=== PATIENT | male | born 1950 | race Caucasian/White ===

== ENCOUNTER → 2019-07-03 | Outpatient (CLI) | payer MEDICARE ==
[2019-07-03 08:28] LABS: HEMATOCRIT 44.1 % (42.0-52.0); HEMOGLOBIN 14.7 g/dl (13.5-17.5); MEAN CORPUSCULAR HEMOGLOBIN 31.6 pg (27.0-33.0); MEAN CORPUSCULAR HGB CONC 33.3 g/dl (32.0-36.5); MEAN CORPUSCULAR VOLUME 94.8 fl (80.0-96.0); PLATELET COUNT, AUTOMATED 217 10^3/uL (150-450); RED BLOOD COUNT 4.65 10^6/uL (4.30-6.10); WHITE BLOOD COUNT 3.7 10^3/uL (4.0-10.0)
[2019-07-03 08:50] LABS: HEMOGLOBIN A1c 5.3 %
[2019-07-03 09:12] LABS: ALT/SGPT 20 U/L (12-78); BILIRUBIN,TOTAL 0.8 MG/DL (0.2-1.0); BLOOD UREA NITROGEN 13 MG/DL (7-18); CALCIUM LEVEL 9.4 MG/DL (8.8-10.2); CARBON DIOXIDE LEVEL 29 MEQ/L (21-32); CHLORIDE LEVEL 104 MEQ/L (98-107); CHOLESTEROL LEVEL 185 MG/DL (<200); CHOLESTEROL RISK RATIO 2.681 (<5); CREATININE FOR GFR 0.97 MG/DL (0.70-1.30); GLOMERULAR FILTRATION RATE > 60.0 (>42); GLUCOSE, FASTING 88 MG/DL (70-100); HDL CHOLESTEROL 69 MG/DL (>40); LDL CHOLESTEROL 105 MG/DL (<100); NON-HDL-C 116 MG/DL; POTASSIUM SERUM 4.5 MEQ/L (3.5-5.1); SODIUM LEVEL 140 MEQ/L (136-145); TOTAL PROTEIN 6.6 GM/DL (6.4-8.2); TRIGLYCERIDES LEVEL 53 MG/DL (<150)
== END ==
LOC: M LAB 07:50
PROVIDERS: ATTEND Family Medicine
DX: I10 Essential (primary) hypertension (principal); N40.0 Benign prostatic hyperplasia without lower urinary tract symptoms; R53.83 Other fatigue

== ENCOUNTER → 2019-07-19 | Outpatient (REF) | payer MEDICARE ==
[2019-07-19 14:09] LABS: AMORPHOUS SEDIMENT MODERATE (NEGATIVE); APPEARANCE, URINE HAZY (CLEAR); BACTERIA, URINE AUTO NEGATIVE (NEGATIVE); BILIRUBIN, URINE AUTO NEGATIVE (NEGATIVE); BLOOD, URINE BLOOD NEGATIVE (NEGATIVE); COLOR, URINE YELLOW (YELLOW); GLUCOSE, URINE (UA) AUTO NEGATIVE (NEGATIVE); KETONE, URINE AUTO NEGATIVE (NEGATIVE); LEUKOCYTE ESTERASE, URINE AUTO NEGATIVE (NEGATIVE); NITRITE, URINE AUTO NEGATIVE (NEGATIVE); PROTEIN, URINE AUTO NEGATIVE (NEGATIVE); RBC, URINE AUTO 0 /HPF (0-3); SPECIFIC GRAVITY URINE AUTO 1.013 (1.002-1.035); SQUAMOUS EPITHELIAL CELL UR AU 0 /HPF (0-6); UROBILINOGEN, URINE AUTO 0.2 mg/dL (0.0-2.0); WBC, URINE AUTO 2 /HPF (0-3)
== END ==
LOC: M SMT 13:08
PROVIDERS: ATTEND Urology
DX: R97.20 Elevated prostate specific antigen [PSA] (principal)

== ENCOUNTER → 2019-07-24 | Outpatient (CLI) | payer MEDICARE ==
[~2019-07-24] MED LIST: AMLO-183 PO; FLOM0.4C39 PO; RA C1OIL PO
--- NOTE | 2019-07-24 16:32 | REP ---
Prostate sonography: History: Elevated PSA. Sonographic findings: Trans rectal prostate sonography demonstrates unremarkable seminal vesicles. Prostate gland is heterogeneously enlarged with calcifications and cystic changes noted. Glandular dimensions are measured at 4.7 x 5.2 x 3.6 cm with a calculated glandular volume of 45.7 ml. Transrectal sonographic guidance is provided to Dr. Pagan who performed trans rectal ultrasound guided needle biopsy procedure . Electronically Signed by Jake Dietrich MD 07/24/2019 04:24 P
== END ==
LOC: M SMT PRO 08:43
PROVIDERS: ATTEND Urology
DX: R97.20 Elevated prostate specific antigen [PSA] (principal)
CPT/HCPCS: 55700; 76872; 76942; G0416

== ENCOUNTER → 2019-08-01 | Outpatient (CLI) | payer MEDICARE ==
[~2019-08-01] MED LIST changes: -AMLO-183 PO; -FLOM0.4C39 PO; +ISOVUE-370 76% 100ML VIAL (Q9967) As Ordered ONE; -RA C1OIL PO
--- NOTE | 2019-08-02 12:21 | REP ---
CT abdomen and pelvis with IV but without oral contrast: History: Prostate CA. No comparison CT study. CT contrast dose is 100 mL of intravenous Isovue 370. CT findings: Preliminary digital associate accountant radiograph demonstrates thoracolumbar scoliosis and bilateral hip arthroplasties. Bowel gas pattern is normal. The lung bases are clear. The liver and the spleen are normal in size. There are scattered granulomatous calcifications in the spleen and liver. No focal hepatic or splenic mass lesion is seen. No adrenal lesion is observed on either side. No abnormality is noted in the gallbladder or in the pancreas. The kidneys enhance symmetrically and are morphologically intact. No hydronephrosis or mass is observed. Normal caliber aorta is seen. No periaortic mass or adenopathy is seen. No pelvic mass or adenopathy is observed. There is considerable spray artifact however through the mid pelvis from the hip arthroplasty components. Left colonic diverticulosis is observed. Small and large intestinal bowel loops are unremarkable. Normal appendix is seen. No abdominal wall defect is seen. Bone window settings show no bony destructive lesion. Impression: [place] artifact through the pelvis from bilateral hip arthroplasties. Old granulomatous calcifications in the liver and spleen. Otherwise negative CT study abdomen and pelvis. Electronically Signed by Jake Dietrich MD 08/02/2019 06:24 P
== END ==
LOC: M RAD 17:12
PROVIDERS: ATTEND Urology
DX: C61 Malignant neoplasm of prostate (principal); D73.89 Other diseases of spleen; K76.89 Other specified diseases of liver; Z96.643 Presence of artificial hip joint, bilateral
CPT/HCPCS: 74177; Q9967

== ENCOUNTER → 2019-08-02 | Outpatient (CLI) | payer MEDICARE ==
--- NOTE | 2019-08-02 15:27 | REP ---
WHOLE BODY RADIONUCLIDE BONE SCAN: HISTORY: Prostate carcinoma. TECHNIQUE: 22.0 mCi technetium 99m MDP is injected and standard whole body bone scan imaging is acquired. SCINTIGRAPHIC FINDINGS: The patient is status post bilateral hip arthroplasties and photopenic areas associated with the arthroplasty components are seen. There is an arthritic pattern of increased uptake in the medial compartment of the left knee and there is osteoarthritic uptake in both acromioclavicular joints. There is a mild levoconvex lumbar scoliotic curve. Degenerative disc uptake is seen in the lumbar spine. Otherwise normal distribution of skeletal tracer with uptake in bilateral kidneys and in the urinary bladder. There is no evidence to suggest skeletal metastatic disease. IMPRESSION: No evidence to suggest skeletal metastasis. Electronically Signed by Jake Dietrich MD 08/02/2019 06:28 P
== END ==
LOC: M RAD 09:28
PROVIDERS: ATTEND Urology
DX: M41.26 Other idiopathic scoliosis, lumbar region (principal); C61 Malignant neoplasm of prostate; Z96.643 Presence of artificial hip joint, bilateral
CPT/HCPCS: 78306; A9503

== ENCOUNTER → 2019-08-21 | Outpatient (CLI) | payer MEDICARE ==
[~2019-08-21] MED LIST changes: +AMLO-183 PO; +FLOM0.4C39 PO; -ISOVUE-370 76% 100ML VIAL (Q9967) As Ordered ONE; +RA C1OIL PO
--- NOTE | 2019-08-21 13:46 | RADONC ---
RADIATION ONCOLOGY CONSULTATION NOTE DATE: 08/21/2019 CHART NUMBER: [id number] He has a diagnosis of adenocarcinoma, prostate Reston 9 (4+5) located in all [address] scan of the abdomen and pelvis was negative for metastatic disease as was the nuclear medicine bone scan. STAGE: Clinical T2c, N0, M0, group stage 2A. ICD-10 CODE: C41. ECOG PERFORMANCE STATUS: 0. HISTORY OF PRESENT ILLNESS: The patient is a 69-year-old man who presented to our clinic for evaluation of external beam radiotherapy. He apparently was seen for evaluation of a PSA which had risen to 10 approximately last year. However the patient declined any further testing or diagnostic/procedures at that time. When he repeated his PSA, it had markedly risen to 158 and a biopsy was performed. On further questioning, it was actually 3 years ago when his PSA was approximately 10, was actually 10.4, and he waited until most recently for a repeat PSA, which was again, as stated, elevated to 158 necessitating his most recent biopsy. The biopsy revealed an adenocarcinoma located in all 12 specimens and was noted again in all 12 specimens to be a Reston's score of 9 (4+5). There were tumor cells noted throughout most of the entire cores with perineural invasion. The patient underwent a CT scan of the abdomen and pelvis and it did not show any evidence of lymphadenopathy. However, there was a significant amount of artifact secondary to his previous hip replacements. I reviewed the scans, I could not really define the extent of the prostate in those scans. The nuclear medicine scan, however was essentially negative for any gross evidence of metastatic deposits. He is here today for evaluation of local regional radiotherapy. PAST MEDICAL HEALTH: Hypertension. Bilateral left hip arthroplasty. Right lateral hip arthroplasty (2013, right). TRUS biopsy of the prostate 07/24/2019. FAMILY HISTORY OF CANCER: His father was at 82 from heart disease and mother lived to be 91 years with no identifiable major illnesses. He has two brothers and five sisters who are all healthy. SOCIAL HISTORY: The patient states that he has never smoked and his last screening was on 08/21/2019. ALCOHOL: He is a past drinker but currently does not. 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 MEDICATIONS: - Tylenol 650 mg q.8 h - amlodipine 5 mg 1 tablet orally once a day - Flomax 0.4 mg capsule 1 capsule orally once a day ALLERGIES: No known drug allergies. REVIEW OF SYSTEMS: RESPIRATORY: He denies coughing, dyspnea, hemoptysis, hiccups, pleuritic pain or wheezing. NEUROLOGIC: Denies disorientation, dizziness, gait disturbances, headaches, insomnia, memory loss, neuropathy, motor issues, paralysis, seizure disorders, sensory problems or stroke. NECK: Denies masses, muscle weakness, pain or difficulty with a ranges of motion or swelling. MUSCULOSKELETAL: Denies significant arthritis, bone pain, joint pain, muscle weakness or range of motion problems. HEMATOLOGIC: Denies easy bruising or lymphadenopathy. GENITOURINARY: He has minimal dysuria and frequency, especially when he is not on the Flomax, but denies hematuria, incontinence, nocturia, renal stone disease, retrograde ejaculation, scrotal swelling, urgency or urine changes, especially in color. GASTROINTESTINAL: Denies changes in bowel habits, constipation, diarrhea, heartburn, dyspepsia, hematochezia, hemorrhoids, melena, GI bleeding, nausea, pain, cramping, early satiety or vomiting. ENT: He denies ear pain, epistaxis, esophagitis, hearing difficulty, mouth dryness, oral bleeding, otitis, sinusitis, sputum production, stomatitis, alteration of taste or tinnitus. CONSTITUTIONAL: Denies decreased appetite, fatigue, fever, lethargy, malaise, night sweats, rigors, weight change. CARDIOVASCULAR: Denies arrhythmias chest pain, dyspnea, edema, orthopnea, palpitations. ALLERGIES: Denies allergies or adverse reactions. PHYSICAL EXAMINATION: VITALS: O2 saturation 98% on room air. Diastolic 83, systolic 153, respirations 19, pulse 66, temperature 97.4, weight 169.4, height is 74 inches. HEENT: Normocephalic. EOMs intact. PERRLA. Fundi benign. LYMPHATICS: No palpable peripheral lymphadenopathy is appreciated. LUNGS: Clear to auscultation and percussion. HEART: Regular without murmurs. ABDOMEN: Without evidence of hepatomegaly, masses, deep abdominal tenderness. EXTREMITIES: Without cyanosis, clubbing or edema. NEUROLOGIC: Examination grossly physiologic. SKIN: Normal with no significant solar degenerative changes. RECTAL EXAMINATION: Deferred at the patient's request. He has had a biopsy ultrasound all of which confirm an irregular prostate/multinodular with significant involvement with a high-grade adenocarcinoma. IMPRESSION: Poorly differentiated adenocarcinoma, prostate Reston's 9 (4+4) in all 12 specimens reported. PLAN OF RADIOTHERAPY: The patient is at high risk and he also has issues with appropriate imaging of his prostate gland for IMRT. In order to perform IMRT/IGRT, we need to be able to image the prostate adequately and with his bilateral hip replacements the artifacts are to significant to allow appropriate imaging. For this reason and because of the high-grade of the tumor, I would suggest that the patient start with approximately 3 months of androgen deprivation therapy. Perhaps during that period of time the prostate volume will decrease. At that point, a reimaging study can be obtained. Perhaps we can place the patient on our simulator where an image could be obtained to see if it would be adequate for a 3D conformal radiotherapy technique directed to the prostate and periprostatic lymph nodes. There would be further reductions after treatment of the pelvic lymph nodes to include the prostate up to a more significant higher dose. I have discussed these findings with Dr. Salas and Dr. Pagan and we will postpone the patient's CT scanner/simulation until approximately 3-1/2 months after which he will have been on his hormonal therapy (androgen deprivation therapy) for approximately 3 months. The indications, possible side effects, as well as alternatives to radiotherapy have been explained to Mr. And Mrs. Portillo. They understand and are willing to proceed as outlined. Thank you for allowing us the opportunity of participation in the joint management of this very fine gentleman. ANGELITA
== END ==
LOC: M ONCR 09:50
PROVIDERS: ATTEND Radiology Radiation Oncology
DX: C61 Malignant neoplasm of prostate (principal)

== ENCOUNTER → 2019-09-28 | Outpatient (CLI) | payer MEDICARE | LOC: M LAB 07:50 | PROVIDERS: ATTEND Urology | DX: C61 Malignant neoplasm of prostate (principal) ==

== ENCOUNTER → 2019-11-27 | Outpatient (CLI) | payer MEDICARE ==
[~2019-11-27] MED LIST changes: +ASPI81TA21 PO
--- NOTE | 2019-11-27 11:02 | RADONC ---
RADIATION ONCOLOGY RE-CONSULTATION NOTE DATE OF SERVICE: 11/27/2019 CHART NUMBER: [id number] DIAGNOSIS: Prostate CA. CLINICAL STAGE: [id number], PSA 158, and Jessee 9 (4+5). ICD-10 CODE: C41. ECOG PERFORMANCE STATUS: 0 HISTORY OF PRESENT ILLNESS: Mr. Portillo is a 69-year-old pleasant gentleman presented to our clinic for re-evaluation of external radiation therapy after 3 months of ADT. His history goes back to 2016. He had a routine PSA test which was reported to be 10.4. He did not have any urinary symptoms and there was no followup. Repeated the PSA on 06/23/2019 was reported to be 158. He underwent a prostatic biopsy on 07/24/2019 and it showed Gleason9 (4+5). There were tumor cells noted throughout most of the entire cores with perineural invasion. CT of the abdomen, pelvis, chest were negative for metastatic disease. Because of the bilateral hip replacements it was difficult to define extent of the prostate. So, he was recommended 3 months of ADT in which is completed and returned for re- evaluation. PAST MEDICAL HISTORY: As mentioned on the previous hypertension, bilateral hip replacement. arthroplasty. No significant other medical history. FAMILY HISTORY OF CANCER: Father , 82, from heart disease. Mother lived to be 91 years. SOCIAL HISTORY: He is a nonsmoker. Denies any alcohol abuse. 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 MEDICATIONS: - Tylenol p.r.n. - amlodipine 5 mg 1 tablet daily - Flomax 0.4 mg daily He has NO KNOWN ALLERGIES. REVIEW OF SYSTEMS: GENERAL: He denies any recent weight changes. Recently, he experienced occasional hot flashes lasting just a few minutes. CONSTITUTIONAL: Denies decreased appetite, fatigue, fever or recent weight changes. RESPIRATORY: Denies any coughing or wheezing. GASTROINTESTINAL: Denies diarrhea, constipation or abdominal pain. heart burn, rectal bleeding MUSCULOSKELETAL: Denies arthritis. No bone pain. No joint pain. He nightly no weakness or the muscles. UROLOGIC: He denies, dysuria or hematuria. mild urinary frequencies improved with flomax CARDIOVASCULAR: Denies chest pain or palpitation. GENITOURINARY: He denies urinary frequency, dysuria, nocturia, urgency. PHYSICAL EXAMINATION: GENERAL: He appeared to be in good general condition, not in apparent distress. He is alert and oriented. HEENT: Normocephalic. EOM intact. LYMPHATICS: There is no palpable lymphadenopathy in the neck. LUNGS: Are clear. HEART: Regular rhythm and rate. ABDOMEN: Is soft, nontender, nondistended. Without any palpable mass or organomegaly. EXTREMITIES: Without clubbing, swelling, cyanosis. NEUROLOGIC: Grossly intact. SKIN: There are no eczema or psoriasis. No lesions. DIGITAL RECTAL EXAMINATION: Revealed normal size prostate. There is nodularity ffelt on the left towards mid and apical portion. ASSESSMENT AND RECOMMENDATIONS: This 69-year-old gentleman has diagnosis of very high risk of prostate cancer. He was recommended ADT and external radiation therapy. There were problem defining prostate because of bilateral hip replacement. He returned after 3 months of ADT. We have reviewed NCCN guidelines and recommended the long-term ADT about 2-3 years with external radiation therapy. Because of the difficulties of defining prostate, I suggested fiducial marker placement as well as hydrogel spacer placement. The patient was accompanied by his . after reviewing NCCN guidelines and I explained procedure of radiation therapy and potential side effects senior care and short therm. I have given therm a chance to ask questions and concerns and they were answered to their satisfaction. They will discuss further with DR. Hinojosa and will get back to us. ANGELITA
== END ==
LOC: M ONCR 08:47
PROVIDERS: ATTEND Radiology Radiation Oncology
DX: C61 Malignant neoplasm of prostate (principal); Z92.3 Personal history of irradiation

== ENCOUNTER → 2019-12-22 | Outpatient (CLI) | payer MEDICARE | LOC: M LAB 08:50 | PROVIDERS: ATTEND Urology | DX: C61 Malignant neoplasm of prostate (principal) ==

== ENCOUNTER → 2020-01-01 | Outpatient (CLI) | payer MEDICARE ==
--- NOTE | 2020-01-01 14:25 | REPPI ---
Prostate sonography: History: Fiducial marker placement. Prior prostate biopsy. Sonographic findings: Transrectal sonographic guidance is provided to Dr. Pagan who performed trans rectal ultrasound guided fiducial marker placement. Electronically Signed by Jake Dietrich MD 01/01/2020 02:16 P
== END ==
LOC: M SMT PRO 10:40
PROVIDERS: ATTEND Urology
DX: C61 Malignant neoplasm of prostate (principal)

== ENCOUNTER → 2020-01-15 | Outpatient (RCR) | payer MEDICARE ==
--- NOTE | 2020-01-15 10:57 | RADONC ---
RADIATION ONCOLOGY SIMULATION NOTE: DATE: 01/15/2020 CHART NUMBER: [id number] Mr. Portillo was taken to the CT scan for CT simulation of his prostate field. CT was accomplished without difficulty or discomfort. Radiation treatment planning is underway and radiation treatments will begin subsequently. An immobilization device was created and will be used throughout the course of treatment. It was created without difficulty or discomfort. I was physically present throughout the course of CT simulation.
== END ==
LOC: M ONCR 10:29
PROVIDERS: ATTEND Radiology Radiation Oncology
DX: C61 Malignant neoplasm of prostate (principal)

== ENCOUNTER → 2020-02-14 | Outpatient (RCR) | payer MEDICARE ==
--- NOTE | 2020-01-28 08:58 | RADONC ---
RADIATION ONCOLOGY PROGRESS NOTE DATE: 01/28/2020 CHART NUMBER: [id number] PROGRESS NOTE: Mr. Portillo is presently at a dose of 540 cGy to his prostate and is tolerating treatments quite well at this point with no complaints related to his radiation therapy. He is having no urinary or bowel difficulties and no bone pain. REVIEW OF SYSTEMS: The patient's review of systems is noncontributory. Denies nausea, vomiting, fevers, chills, night sweats, diplopia, headaches, anxiety or depression, anorexia, weight loss, visual disturbances, chest pain, urinary or bowel difficulties, bone pain, or neurological problems. PHYSICAL EXAMINATION: The patient's skin is in good condition with no evidence of radiation change present. There is no moist or dry desquamation. The remainder of his physical exam remains unchanged. Mr. Portillo is tolerating treatments quite well and radiation will continue as scheduled.
--- NOTE | 2020-02-04 13:21 | RADONC ---
RADIATION ONCOLOGY PROGRESS NOTE DATE: 02/04/2020 CHART #: [id number] Mr. Portillo is presently at a dose of 1440 cGy to his prostate and seminal vesicles and is tolerating treatments quite well at this point with no complaints related to his radiation therapy. He is having no urinary or bowel difficulties and no bone pain. REVIEW OF SYSTEMS: The patient's review of systems is noncontributory. Denies nausea, vomiting, fevers, chills, night sweats, diplopia, headaches, anxiety or depression, anorexia, weight loss, visual disturbances, chest pain, urinary or bowel difficulties, bone pain, or neurological problems. PHYSICAL EXAMINATION: The patient's skin is in good condition with no evidence of moist or dry desquamation. The remainder of his physical exam remains unchanged. Mr. Portillo is tolerating treatments quite well and radiation will continue as scheduled.
--- NOTE | 2020-02-11 21:08 | RADONC ---
RADIATION ONCOLOGY PROGRESS NOTE DATE: 02/11/2020 CHART NUMBER: [id number] Mr. Portillo is presently at a dose of 2340 cGy to his prostate and seminal vesicles and is tolerating treatments quite well at this point with no difficulties related to his radiation therapy. He is having no urinary or bowel difficulties. No bone pain. REVIEW OF SYSTEMS: The patient's review of systems is noncontributory. He denies nausea, vomiting, fevers, chills, night sweats, diplopia, headaches, anxiety or depression, anorexia, weight loss, visual disturbances, chest pain, urinary or bowel difficulties, bone pain, or neurological problems. PHYSICAL EXAMINATION: The patient's skin is in excellent condition with no evidence of moist or dry desquamation. The remainder of his physical exam remains unchanged. Mr. Portillo is tolerating treatments quite well and radiation will continue as scheduled.
== END ==
LOC: M ONCR 01-21 11:57
PROVIDERS: ATTEND Radiology Radiation Oncology
DX: C61 Malignant neoplasm of prostate (principal)

== ENCOUNTER 2020-03-14 08:30 | Outpatient (RCR) | payer MEDICARE ==
--- NOTE | 2020-02-20 16:21 | RADONC ---
RADIATION ONCOLOGY PROGRESS NOTE DATE: 02/18/2020 CHART NUMBER: [id number] PROGRESS NOTE: Mr. Portillo is presently at a dose of 3240 cGy to his prostate and is tolerating treatments quite well at this point with no complaints related to his radiation therapy. He is having no urinary or bowel difficulties. No bone pain. REVIEW OF SYSTEMS: The patient's review of systems is noncontributory. Denies nausea, vomiting, fevers, chills, night sweats, diplopia, headaches, anxiety or depression, anorexia, weight loss, visual disturbances, chest pain, urinary or bowel difficulties, bone pain, or neurological problems. PHYSICAL EXAMINATION: The patient's skin is in good condition with no evidence of moist or dry desquamation. The remainder of his physical exam remains unchanged. Mr. Portillo is tolerating treatments quite well and radiation will continue as scheduled.
--- NOTE | 2020-02-26 11:05 | RADONC ---
RADIATION ONCOLOGY PROGRESS NOTE DATE OF SERVICE: 02/25/2020 CHART NUMBER: [id number]. PROGRESS NOTE: Mr. Portillo is presently at a dose of 4140 cGy to his prostate and seminal vesicles and is tolerating treatments quite well at this point with no significant difficulties related to his radiation therapy. He is having no urinary or bowel problems and no bone pain. REVIEW OF SYSTEMS: The patient's review of systems is noncontributory. He denies nausea, vomiting, fevers, chills, night sweats, diplopia, headaches, anxiety or depression, anorexia, weight loss, visual disturbances, chest pain, urinary or bowel difficulties, bone pain, or neurological problems. PHYSICAL EXAMINATION: The patient's skin is in good condition with no evidence of moist or dry desquamation. The remainder of his physical exam remains unchanged. Mr. Portillo is tolerating treatments quite well, and radiation will continue as scheduled.
--- NOTE | 2020-03-05 07:08 | RADONC ---
RADIATION ONCOLOGY PROGRESS NOTE DATE: 03/03/2020 CHART #: [id number] Mr. Portillo is presently at a dose of 4860 cGy to his prostate and seminal vesicles and is tolerating treatments quite well at this point with no complaints related to his radiation therapy. He is having no urinary or bowel difficulties and no bone pain. REVIEW OF SYSTEMS: The patient's review of systems is noncontributory. Denies nausea, vomiting, fevers, chills, night sweats, diplopia, headaches, anxiety or depression, anorexia, weight loss, visual disturbances, chest pain, urinary or bowel difficulties, bone pain, or neurological problems. PHYSICAL EXAMINATION: The patient's skin is in good condition with no evidence of moist or dry desquamation. The remainder of his physical exam remains unchanged. Mr. Portillo is tolerating treatments quite well and radiation will continue as scheduled.
--- NOTE | 2020-03-14 17:25 | RADONC ---
RADIATION ONCOLOGY PROGRESS NOTE DATE: 03/11/2020 CHART NUMBER: [id number] PROGRESS NOTE: Mr. Portillo is presently at a dose of 5040 cGy to his prostate and is tolerating treatment quite well at this point with no complaints related to his radiation therapy. He is having no significant urinary or bowel difficulties. No bone pain. REVIEW OF SYSTEMS: The patient's review of systems is noncontributory. Denies nausea, vomiting, fevers, chills, night sweats, diplopia, headaches, anxiety or depression, anorexia, weight loss, visual disturbances, chest pain, urinary or bowel difficulties, bone pain, or neurological problems. PHYSICAL EXAMINATION: The patient's skin is in good condition with no evidence of moist or dry desquamation. The remainder of his physical exam remains unchanged. The patient is tolerating treatment quite well and radiation will continue as scheduled.
== END 2020-03-16 ==
LOC: M ONCR 08:30
PROVIDERS: ATTEND Radiology Radiation Oncology
DX: C61 Malignant neoplasm of prostate (principal)

== ENCOUNTER 2020-03-26 08:30 | Outpatient (RCR) | payer MEDICARE ==
--- NOTE | 2020-03-23 09:19 | RADONC ---
RADIATION ONCOLOGY PROGRESS NOTE: DATE: 03/17/2020 CHART NUMBER: [id number] Mr. Portillo is presently at a dose of 6660 cGy to his prostate and is tolerating treatments quite well at this point with no complaints related to his radiation therapy. He is having no significant urinary or bowel difficulties and no bone pain. REVIEW OF SYSTEMS: The patient's review of systems is largely noncontributory. He denies nausea, vomiting, fevers, chills, night sweats, diplopia, headaches, anxiety or depression, anorexia, weight loss, visual disturbances, chest pain, urinary or bowel difficulties, bone pain, or neurological problems. PHYSICAL EXAMINATION: The patient's skin is in good condition with no evidence of moist or dry desquamation. The remainder of his physical exam remains unchanged. Mr. Portillo was tolerating treatments quite well and radiation will continue as scheduled.
--- NOTE | 2020-03-27 21:17 | RADONC ---
RADIATION ONCOLOGY PROGRESS NOTE DATE: 03/24/2020 CHART NUMBER: [id number] Mr. Portillo is presently at a dose of 5760 cGy to his prostate and is tolerating treatments quite well at this point with no complaints related to his radiation therapy. He has no urinary or bowel difficulties and no bone pain. The patient's review of systems is noncontributory. He denies nausea, vomiting, fevers, chills, night sweats, diplopia, headaches, anxiety or depression, anorexia, weight loss, visual disturbances, chest pain, urinary or bowel difficulties, bone pain, or neurological problems. PHYSICAL EXAMINATION: The patient's skin is in good condition with no evidence of radiation change present. There is no moist or dry desquamation. The remainder of his physical exam remains unchanged. Mr. Portillo is tolerating treatments quite well and radiation will continue as scheduled.
--- NOTE | 2020-04-01 12:56 | RADONC ---
RADIATION ONCOLOGY TREATMENT SUMMARY DATE OF SERVICE: 03/27/2020 CHART NUMBER: [id number]. DIAGNOSIS Prostate cancer. STAGE: IIIC, T2c, N0, M0, Jessee score 9 (4-5), grade group 5, initial PSA 158. ECOG PERFORMANCE STATUS: 0. TREATMENT SUMMARY: Mr. Portillo is a very pleasant 70-year-old white male with the diagnosis of what appears to be a stage IIIC, T2c, N0, M0 poorly differentiated Stevenson score 9 (4-5), grade group 5 adenocarcinoma of the prostate with an initial PSA level of 158, who presented to me for consideration of definitive external beam radiation therapy with IMRT/IGRT. We treated the patient to his prostate for a total dose of 7920 cGy delivered in 44 fractions of 180 cGy each over 60 elapsed days from 01/24/2020 through 03/26/2020. The patient's prostate was treated on a linear accelerator utilizing a 6 MV photon beam via IMRT/IGRT. We initially treated the prostate, seminal vesicles, and first echelon of lymph nodes for a dose of 4500 cGy in 25 fractions of 180 cGy each. We subsequently coned down to deliver an additional 900 cGy to the prostate and seminal vesicles, bringing the seminal vesicles to 5400 cGy. Finally, we boosted the prostate itself for an additional 2520 cGy in 14 fractions of 180 cGy each, bringing it to a total dose once again of 7920 cGy. Mr. Portillo tolerated his treatments quite well and was able to complete therapy as prescribed without interruption. I have scheduled the patient to see me again in 1 month for further followup. He will also continue to be followed by his other physicians, as well. cc: MD Lidia Cordero MD
== END 2020-04-15 ==
LOC: M ONCR 08:30
PROVIDERS: ATTEND Radiology Radiation Oncology
DX: C61 Malignant neoplasm of prostate (principal)

== ENCOUNTER → 2020-04-22 | Outpatient (CLI) | payer MEDICARE ==
[~2020-04-22] MED LIST changes: +SILD50TA PO
== END ==
LOC: M LAB 08:20
PROVIDERS: ATTEND Nurse Practitioner Women's Health
DX: C61 Malignant neoplasm of prostate (principal)

== ENCOUNTER → 2020-04-23 | Outpatient (CLI) | payer MEDICARE ==
--- NOTE | 2020-05-01 17:22 | RADONC ---
RADIATION ONCOLOGY FOLLOWUP NOTE DATE: 04/23/2020 CHART NUMBER: [id number] DIAGNOSIS: Prostate cancer. STAGE: III C, T2c, N0, M0, [place] score 9 (4-5), grade group 5, initial PSA 158. ECOG PERFORMANCE STATUS: 0 FOLLOWUP NOTE: Mr. Portillo is a very pleasant 70-year-old white male with the diagnosis of a stage III C, T2c, N0, M0, poorly differentiated, [place] score 9 (4-5), grade group 5 adenocarcinoma of prostate with initial PSA level of 158 who is presenting to us today for routine followup visit 1 month post completion of external beam radiation therapy. The patient presents today reporting that he is doing quite well with no complaints at this time related to his radiation therapy or disease. He has no urinary or bowel difficulties and no bone pain. REVIEW OF SYSTEMS: The patient's review of systems is noncontributory. Denies nausea, vomiting, fevers, chills, night sweats, diplopia, headaches, anxiety or depression, anorexia, weight loss, visual disturbances, chest pain, urinary or bowel difficulties, bone pain, or neurological problems. PHYSICAL EXAMINATION: The patient is a well-developed, well-nourished male in no acute distress. HEENT exam is normocephalic, atraumatic. Extraocular movements are intact. There is no palpable cervical, supraclavicular, infraclavicular, axillary, or inguinal lymphadenopathy present. Lungs are clear to auscultation and percussion. Heart has a regular rate and rhythm. Abdomen is benign with no hepatosplenomegaly, masses, or tenderness. Rectal examination reveals a normal anal sphincter tone. His prostate is smooth with no evidence of nodularity. Skeletal examination reveals no tenderness to pressure or percussion of the bony skeleton. Extremities reveal no clubbing, cyanosis, or edema. Neurologic exam is grossly intact, as is the remainder of the physical examination. ASSESSMENT: The patient is clinically need at this time. His PSA on 04/22/2020 is 0.56. I have scheduled the patient for routine followup in this office in 6 months' time. He will also continue to be followed by a Dr. Pagan and his other physicians in the meantime. The patient has requested a prescription for Viagra, which I have sent in. cc: MD Lidia Cordero MD
== END ==
LOC: M ONCR 08:51
PROVIDERS: ATTEND Radiology Radiation Oncology
DX: C61 Malignant neoplasm of prostate (principal); Z92.3 Personal history of irradiation

== ENCOUNTER → 2020-08-20 | Outpatient (CLI) | payer MEDICARE ==
[2020-08-20 14:13] LABS: BASO % 0.6 % (0.0-1.0); EOS # 0.1 10^3/uL (0.0-0.5); EOS % 3.6 % (0.0-3.0); HEMATOCRIT 41.6 % (42.0-52.0); HEMOGLOBIN 13.2 g/dl (13.5-17.5); LYMPH # 0.6 10^3/uL (1.5-5.0); LYMPH % 18.5 % (24.0-44.0); MEAN CORPUSCULAR HEMOGLOBIN 30.2 pg (27.0-33.0); MEAN CORPUSCULAR HGB CONC 31.7 g/dl (32.0-36.5); MEAN CORPUSCULAR VOLUME 95.2 fl (80.0-96.0); MONO # 0.4 10^3/uL (0.0-0.8); MONO % 12.8 % (0.0-5.0); NEUTROPHILS # 2.2 10^3/uL (1.5-8.5); NEUTROPHILS % 64.2 % (36.0-66.0); PLATELET COUNT, AUTOMATED 221 10^3/uL (150-450); RED BLOOD COUNT 4.37 10^6/uL (4.30-6.10); WHITE BLOOD COUNT 3.4 10^3/uL (4.0-10.0)
[2020-08-20 14:51] LABS: ERYTHROCYTE SEDIMENTATION RATE 7 mm/hr (0-20)
[2020-08-20 20:48] LABS: C REACTIVE PROTEIN QUANTITATIV < 0.30 MG/DL (0.00-0.30); RHEUMATOID FACTOR QUANT < 10.0 IU/ML (<15.0); URIC ACID 4.5 MG/DL (3.5-7.2)
== END ==
LOC: M PLALAB 10:42
PROVIDERS: ATTEND Physician Assistant
DX: G56.23 Lesion of ulnar nerve, bilateral upper limbs (principal)

== ENCOUNTER → 2020-10-07 | Outpatient (REF) | payer MEDICARE | LOC: M PLALAB 16:40 → M SMT 16:40 | PROVIDERS: ATTEND Urology | DX: C61 Malignant neoplasm of prostate (principal) ==

== ENCOUNTER → 2020-10-15 | Outpatient (CLI) | payer MEDICARE ==
--- NOTE | 2020-10-15 10:40 | RADONC ---
Radiation Oncology Hx/FUP Radiation Oncology Hx/FUP Date of Service: Oct 15, 2020 Pt Identifier Michele Farmer is a 70 year old male seen for a followup visit today at the department of radiation oncology for a history of high risk prostate cancer T2c [place] 4+5=9 in 12/12 cores PSA 158. He had neoadjuvant ADT from July 2019, and he completed EBRT to 79.2 Gy in 44 fractions on 03/26/20. He continues on ADT per Dr. Pagan. Diagnosis/Treatment History Oncologic History As above Diffuse nodular prostate on exam 07/24/19 TRUS Biopsy [place] 4+5=9 in 12/12 cores PSA history 10/07/20 0.69 04/23/20 0.56 (Post-RT) 12/22/19 4.99 (On ADT, Pre-RT) 07/24/19 158 (Pre ADT) 2015 10.4 08/13/19 CT Abdomen pelvis and bone scan Negative Interval History Feels well stable 3x nocturia not bothersome, no BRBPR or difficulty with bowel movements. No diarrhea. Has ED, no libido. Has hot flashes which are the most bothersome symptom he has. States he is contemplating stopping ADT as his last injection "is about to run out". Current Therapy ADT from 07/[address] Pagan Stage High risk prostate cancer cT2c [place] 4+5=9 in 12/12 cores PSA 158 Social History: Non-smoker Non-drinker Allergies / Meds Home Meds Active Scripts Sildenafil Citrate (Viagra) 50 Mg Tablet, 50 MG PO ASDIRECTED for erectile dysfunction, #10 TAB 5 Refills 1 hour before sexual activity Prov:Srikanth Salas 04/23/20 Reported Medications Aspirin (Aspir-Low) 81 Mg Tablet., 81 MG PO DAILY for pain for 30 Days, #30 TAB with food 11/27/19 Tamsulosin HCl (Flomax) 0.4 Mg Capsule, 0.4 MG PO DAILY for 30 Days, #30 CAP 08/21/19 Amlodipine/Atorvastatin (Amlodipine-Atorvast 5-10 mg) 1 Each Tablet, 1 TAB PO DAILY for 30 Days, #30 TAB 08/21/19 Cod Liver Oil (Cod Liver Oil) 350 Ml Oil, 1 OIL PO, OIL 08/21/19 Review of Systems Review of Systems Constitutional: Reports: Other symptoms (Weight gain); Denies: Chills, Fever, Weakness, Fatigue Eyes: Denies: Pain HEENT: Denies: Head Aches Skin: Denies: Rash Pulmonary: Denies: Dyspnea, Cough Cardiovascular: Denies: Chest Pain, Palpitations Gastrointestinal: Denies: Nausea, Vomiting, Diarrhea, Hematochezia Genitourinary: Reports: Frequency; Denies: Dysuria, Incontinence Hematologic: Denies: Bruising Endocrine: Denies: Polydipsia Musculoskeletal: Denies: Neck pain, Shoulder pain, Back pain Neurological: Denies: Weakness, Numbness Psych: Reports: Mood Normal Physical Examination Vital Signs Wt 192.2 lb T 97.2 P 74 RR 16 BP 154/82 O2 98% Pain 0 Fatigue 0 General Exam: Positive: Alert, Cooperative; Negative: No Acute Distress Eye Exam: Positive: PERRLA ENT EXAM: Positive: Atraumatic Neck Exam: Positive: Supple Chest Exam: Positive: Clear to auscultation, Normal air movement Heart Exam: Positive: Rate Normal, Regular Rhythm Abdomen Exam: Positive: Soft; Negative: Tenderness Extremity Exam: Negative: Edema Skin Exam: Positive: Nl turgor and temperature Neuro Exam: Positive: Normal Gait, Normal Speech, Cranial Nerves 3-12 NL Psych Exam: Positive: Mental status NL Other Physical Findings deferred Diagnostic and Laboratory Diagnostic Review Radiologic images, relevant labs and pathology reports were personally reviewed and discussed with Mr. Farmer. Assessment and Plan Impression Assessment Mr. Farmer is a 70 year old male with a history of high risk prostate cancer T2c [place] 4+5=9 in 09/27 cores PSA 158. He had neoadjuvant ADT from July 2019, and he completed EBRT to 79.2 Gy in 44 fractions on 03/26/20. He continues on ADT per Dr. Pagan. He is doing well symptom-[place], minimal urinary bother. No GI toxicity from RT. He has ADT side effects, weight gain, mild arthralgia, and hot flashes, said he is contemplating whether or not to continue ADT. I explained that given his PSA is not fully suppressed and has in fact risen on the last measurement (to 0.69 from 0.56) that he should strongly consider staying on ADT for the recommended minimum 2 years. If his PSA continues to rise, then he has CRPC and consideration of additional systemic therapy would be warranted. For now as he does not have signs of overt clinical progression (outside of PSA rise) another PSA check would be appropriate to solidify the trend. I will split follow up with Dr. Pagan whom he is set to see in the coming month. Therefore I will see him in 6 months with PSA and testosterone. Performance Status ECOG 0 Plan 6 months with PSA/testosterone Continue ADT per Dr. Pagan Mr. Farmer was encouraged to call with questions or concerns in the interim period. JESSA XAVIER MD Oct 15, 2020 10:40
== END ==
LOC: M ONCR 08:59
PROVIDERS: ATTEND General Practice
DX: C61 Malignant neoplasm of prostate (principal)

== ENCOUNTER → 2021-04-07 | Outpatient (CLI) | payer MEDICARE ==
[2021-04-07 08:24] LABS: HEMATOCRIT 43.8 % (42.0-52.0); MEAN CORPUSCULAR VOLUME 93.8 fl (80.0-96.0); PLATELET COUNT, AUTOMATED 210 10^3/uL (150-450); RED BLOOD COUNT 4.67 10^6/uL (4.30-6.10); WHITE BLOOD COUNT 3.3 10^3/uL (4.0-10.0)
[2021-04-07 09:06] LABS: ALBUMIN 3.7 GM/DL (3.2-5.2); ALT/SGPT 20 U/L (12-78); BILIRUBIN,TOTAL 0.6 MG/DL (0.2-1.0); BLOOD UREA NITROGEN 9 MG/DL (7-18); CALCIUM LEVEL 8.9 MG/DL (8.8-10.2); CARBON DIOXIDE LEVEL 30 MEQ/L (21-32); CHLORIDE LEVEL 106 MEQ/L (98-107); CHOLESTEROL LEVEL 197 MG/DL (<200); CHOLESTEROL RISK RATIO 3.126 (<5); CREATININE FOR GFR 0.76 MG/DL (0.70-1.30); GLOMERULAR FILTRATION RATE > 60.0 (>42); GLUCOSE, FASTING 88 MG/DL (70-100); HDL CHOLESTEROL 63 MG/DL (>40); LDL CHOLESTEROL 121 MG/DL (<100); NON-HDL-C 134 MG/DL; PROSTATIC SPECIFIC AG MONITOR 8.36 NG/ML (< 4.00); SODIUM LEVEL 140 MEQ/L (136-145); TOTAL PROTEIN 6.8 GM/DL (6.4-8.2); TRIGLYCERIDES LEVEL 65 MG/DL (<150)
[2021-04-07 10:03] LABS: HEMOGLOBIN A1c 5.2 %
[2021-04-07 11:49] LABS: TOTAL 25(OH) VITAMIN D 39.2 NG/ML (30.0-100.0)
== END ==
LOC: M LAB 07:35
PROVIDERS: ATTEND Family Medicine
DX: I10 Essential (primary) hypertension (principal); R53.83 Other fatigue; E03.9 Hypothyroidism, unspecified; C61 Malignant neoplasm of prostate

== ENCOUNTER → 2021-04-07 | Outpatient (CLI) | payer MEDICARE | LOC: M LAB 07:33 | PROVIDERS: ATTEND Urology | DX: C61 Malignant neoplasm of prostate (principal) ==

== ENCOUNTER → 2021-05-12 | Outpatient (CLI) | payer MEDICARE ==
--- NOTE | 2021-05-12 10:26 | RADONC ---
Radiation Oncology Hx/FUP Radiation Oncology Hx/FUP Date of Service: May 12, 2021 Pt Identifier Michele Farmer is a 71 year old male with high risk prostate cancer T2c [place] 4+5=9 in 12 cores PSA 158. He had neoadjuvant ADT from July 2019, and he completed EBRT to 79.2 Gy in 44 fractions on 03/26/20. He continued on ADT through 09/2020, then stopped. Diagnosis/Treatment History Oncologic History As above Had diffuse nodular prostate on exam 07/24/19 TRUS Biopsy [place] 4+5=9 in 1212 cores PSA history 04/07/21 8.45 10/07/20 0.69 04/23/20 0.56 (Post-RT) 12/22/19 4.99 (On ADT, Pre-RT) 07/24/19 158 (Pre ADT) 2015 10.4 08/13/19 CT Abdomen pelvis and bone scan Negative 01/24/20-03/26/20 EBRT 79.2 Gy in 44 fractions Interval History He feels well. Has stable 3x nocturia not bothersome. He has no BRBPR or bowel problems. He has recently resumed ADT with q1m injections, in effort to mitigate the side effects he was experiencing with the longer-term injection. This resumed 04/30/21 and so far he has no night sweats or joint pains as before. Energy levels thus far are also intact. He is working a full schedule as before. Current Therapy ADT resumed from 04/30/21 Stage Prostate cancer high risk cT2c [place] 4+5=9 in 12 cores PSA 158 Social History: Non smoker Non drinker Allergies / Meds Home Meds Active Scripts Sildenafil Citrate (Viagra) 50 Mg Tablet, 50 MG PO ASDIRECTED for erectile dysfunction, #10 TAB 5 Refills 1 hour before sexual activity Prov:Srikanth Salas 04/23/20 Reported Medications Aspirin (Aspir-Low) 81 Mg Tablet.dr, 81 MG PO DAILY for pain for 30 Days, #30 TAB with food 11/27/19 Tamsulosin HCl (Flomax) 0.4 Mg Capsule, 0.4 MG PO DAILY for 30 Days, #30 CAP 08/21/19 Amlodipine/Atorvastatin (Amlodipine-Atorvast 5-10 mg) 1 Each Tablet, 1 TAB PO DAILY for 30 Days, #30 TAB 08/21/19 Cod Liver Oil (Cod Liver Oil) 350 Ml Oil, 1 OIL PO, OIL 08/21/19 Review of Systems Review of Systems Constitutional: Denies: Chills, Fever, Night Sweats, Weight Loss Eyes: Denies: Pain HEENT: Denies: Head Aches Skin: Denies: Rash Pulmonary: Denies: Dyspnea, Cough Cardiovascular: Denies: Chest Pain Gastrointestinal: Denies: Abdominal Pain, Hematochezia Genitourinary: Denies: Dysuria, Frequency, Retention Hematologic: Denies: Bruising Musculoskeletal: Denies: Neck pain, Back pain, Joint pain Neurological: Denies: Weakness, Numbness Psych: Reports: Mood Normal Physical Examination Vital Signs Wt 186 lbs T 96.8 P 70 RR 18 BP 138/79 O2 96% Pain 0 Fatigue 0 General Exam: Positive: Alert, Cooperative, No Acute Distress Eye Exam: Positive: PERRLA, EOMI ENT EXAM: Positive: Atraumatic Neck Exam: Positive: Supple Chest Exam: Positive: Clear to auscultation, Normal air movement Heart Exam: Positive: Rate Normal Abdomen Exam: Positive: Normal bowel sounds, Soft Male Exam: Positive: Normal Prostate (Smooth), Normal Sphincter Tone Extremity Exam: Negative: Edema Skin Exam: Positive: Nl turgor and temperature Neuro Exam: Positive: Normal Gait, Normal Speech Psych Exam: Positive: Mental status NL Diagnostic and Laboratory Diagnostic Review Radiologic images, relevant labs and pathology reports were personally reviewed and discussed with Mr. Farmer. Assessment and Plan Impression Assessment Mr. Farmer is a 71 year old male with a history of high risk prostate cancer T2c [place] 4+5=9 in 09/27 cores PSA 158. He had neoadjuvant ADT from July 2019, and he completed EBRT to 79.2 Gy in 44 fractions on 03/26/20. He continued on ADT through 09/2020, then stopped. 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 PSA increased to >8 with the wearing off of ADT (jd was 0.59). He has wisely resumed monthly ADT injections with Dr. Pagan. Based on the recent clinic note, there is plan to check PSA again in 3 months. We discussed that if the bothersome hot flashes return, we could try effexor or gabapentin or even low-dose tamoxifen. If he fails ADT monotherapy, then I would advocate for restaging and referral to medical oncology. In the meantime I will see him again in 1 year. He may call anytime should the need to be seen sooner arise. Performance Status ECOG 0 Plan He will continue ADT with Dr. Pagan I will see him again in 12 months Mr. Farmer was encouraged to call with questions or concerns in the interim period. Billing Statement Total time of [22] minutes was spent preparing for the visit [1], obtaining HPI [5], examining the patient [2], reviewing diagnostic tests [1], discussing management options [5], coordinating care [2], and writing this note [6]. JESSA XAVIER MD May 12, 2021 10:26
== END ==
LOC: M ONCR 08:55
PROVIDERS: ATTEND General Practice
DX: C61 Malignant neoplasm of prostate (principal); R35.1 Nocturia; Z92.3 Personal history of irradiation

== ENCOUNTER → 2021-11-27 | Outpatient (CLI) | payer MEDICARE ==
[~2021-11-27] MED LIST changes: +PROHANCE 279.3MG/ML 15ML VIAL ONE
== END ==
LOC: M PLAIMG 15:06
PROVIDERS: ATTEND Urology
DX: C61 Malignant neoplasm of prostate (principal); Z96.653 Presence of artificial knee joint, bilateral; M53.3 Sacrococcygeal disorders, not elsewhere classified
CPT/HCPCS: 72197; A9576

== ENCOUNTER → 2022-05-12 | Outpatient (CLI) | payer MEDICARE ==
[~2022-05-12] MED LIST changes: -PROHANCE 279.3MG/ML 15ML VIAL ONE
== END ==
LOC: M ONCR 08:52
PROVIDERS: ATTEND General Practice
DX: C61 Malignant neoplasm of prostate (principal); R35.1 Nocturia; R97.21 Rising PSA following treatment for malignant neoplasm of prostate; Z79.82 Long term (current) use of aspirin; Z79.818 Long term (current) use of other agents affecting estrogen receptors and estrogen levels; Z79.899 Other long term (current) drug therapy; Z92.3 Personal history of irradiation